=== PATIENT | male | born 1985 | race Caucasian/White ===

== ENCOUNTER 2016-12-06 18:19 | Emergency (ER) | payer BC ==
[~2016-12-06] VITALS: Ht 182.9 cm; Wt 88.0 kg
[2016-12-06 18:22] VITALS: BP 134/82
[2016-12-06] MEDS ORDERED: LIDOCAINE 1%-EPI 1:100K, 20ML ONE (18:49)
[2016-12-06] MEDS ORDERED: LIDOCAINE 1%, 10ML INFIL ONE (19:00)
== END 2016-12-06 19:29 | disposition home or self-care (01) ==
LOC: EDBD 19:22 → ED 19:22
DX: S01.01XA Laceration without foreign body of scalp, initial encounter (principal); W20.8XXA Other cause of strike by thrown, projected or falling object, initial encounter; Y93.89 Activity, other specified; Y92.009 Unspecified place in unspecified non-institutional (private) residence as the place of occurrence of the external cause; Y99.9 Unspecified external cause status
CPT/HCPCS: 99281